=== PATIENT | male | born 1990 | race Caucasian/White ===

== ENCOUNTER → 2017-03-30 | Day surgery (SDC) | payer OTHER ==
--- NOTE | 2017-03-28 09:50 | PCM.ANEPRE ---
Anesthesia Pre-Op Review Reason for Review: phone consult / Dr Rodriguez- jesika hx of malig hyperthermia- pt case now 1st Anesthesia Recommendations: Proceed with Procedure Additional Comments 26 yo man for cysto/stone removal. Distant hx of MH passed down through the family...he is not aware of any specific instance, just told to always let anesthesia know. Prior anesthetics with precautions have been uneventful. He has not been tested. Doesnt' know of any relative who actually had an event, just the family story passed along. Pt told we have charcoal filters for machine, or he could have TIVA without an anesthesia machine or possibly SAB. He appears to prefer a GA. Chart Reviewed by: Irving Ruggiero MD, MD Mar 28, 2017 09:50
[~2017-03-30] VITALS: Ht 175.3 cm; Wt 66.7 kg
[2017-03-30] VITALS (7 sets, daily range): BP systolic 128–159; BP diastolic 77–91; PULSE 54–69; RESP 12–16; O2SAT 94–100
[~2017-03-30] MED LIST: Atropine 0.4 mg/mL Inj IVPUSH PRN; CETI10CA PO; Dexamethasone 4 mg/mL Inj IVPUSH PRN; EPHEDrine Sulfate 50 mg/mL Inj IVPUSH PRN; EPHEDrine/NS 5 mg/mL 5 mL Syringe ONE; HYDR-4003 PO; HYDROcodone-APAP 5-325 mg Tablet PO PRN; HYDROmorphone 1 mg/mL Inj IVPUSH PRN; IBUP-1827 PO; Ketamine 10 mg/mL 20 mL Inj ONE; Labetalol 5 mg/mL 20 mL Inj IV PRN; Lactated Ringer's 1,000 ML IV SCH; Lactated Ringer's 500 ML IV PRN; MetoCLOpramide 5 mg/mL 2 mL Inj IVPUSH PRN; ONDA-53 PO; Ondansetron 2 mg/mL 2 mL Inj IVPUSH PRN; Phenylephrine 10,000 mCg/mL Inj IVPUSH PRN; Propofol 10,000 mCg/mL 20 mL Inj ONE; fentaNYL-PF 50 mCg/mL 2 mL Inj IVPUSH PRN; fentaNYL-PF 50 mCg/mL 2 mL Inj ONE; levoFLOXacin Inj 500 MG in IV Premix 1 EACH IV ONE
[2017-03-30] MEDS: Lactated Ringer's 1,000 ML IV SCH ×2 (06:18→07:32)
--- NOTE | 2017-03-30 07:06 | PCM.HPANE ---
Patient Data Surgeon Admitting Provider: Attending Provider:Franklin Franco MD Primary Care Physician:Alina Agosto MD Other Provider:[facility] Reason for Visit Right Kidney Stone Ht/WT & BMI Height (Feet): 5 Height (Inches): 9.00 Weight (Kilograms): 66.670 Body Mass Index 21.00 Allergies Coded Allergies: No Known Allergies (Unverified , 01/08/16) Past Anesthesia History Anesthesia History: Positive for:: Fam Anesthesia Reaction, Fam Malignant Hypertherm (fathers side- several generations ago ), Denies:: Anesthesia Reactions, Malignant Hyperthermia Diabetes History Hx Diabetes?: No MRSA MRSA: No Medications Hypertension Medication: No Home Meds Incl Beta [place]: No Reported Medications Ibuprofen 600 Mg [id number] Mg PO QID PRN For Pain Ref 0 03/22/17 Ondansetron 4 Mg Tablet4-8 Mg PO Q12H 03/22/17 Hydrocodone-Acetaminophen 5-325 mg 1 Each Tablet1 Tablet PO Q6H PRN For Pain Ref 0 03/22/17 Cetirizine HCl (Zyrtec)10 Mg [id number] Mg PO HS #30 CAPSULE Ref 0 03/22/17 History History of ENT Problems?: No HEENT History: Denies:: Cataracts Glaucoma Hearing Problem Denture Type: None Teeth Condition: Within Normal Limits Hx of Heart Problems?: No Cardiovascular History: Denies:: AICD Abdominal Aortic Aneurism Atrial Fibrillation Coronary Artery Disease Edema Heart Murmur Hypertension Irregular Heartbeat Pacemaker Peripheral Vascular Hx of Respiratory Problem?: No Respiratory History: Denies:: Asthma COPD Emphysema Oxygen Administration Pneumonia Tuberculosis Use of C-PAP Machine Use of Inhalers / NEBS Hx Neurologic Problems?: Yes Neurological History: Positive for:: Headaches (varies from 2xweekly to monthly) Denies:: CVA Multiple Sclerosis Parkinson's Disease Seizures Hx of GI Problems?: No Hx of Problems?: Yes Genitourinary History: Positive for:: Kidney Stones (right stone current admission problem) Denies:: Urinary Tract Infection (not current - hx of with prior stones) Male Hx: Denies:: Prostate Problems Skin History: Denies:: History Skin Disorders? Pressure Ulcers Hx Musculoskeletal Problems?: No Musculoskeletal History: Denies:: Back Injury Degenerative Joint Fibromyalgia Musculoskeletal Trauma Myasthenia Gravis Osteoarthritis Rheumatoid Arthritis Hx of Psycho/Social Problems?: No Psycho Social History: Denies:: Anxiety Hx Depression Hx Surgeries?: Yes (left inguinal hernia rpr) Hx Any Other Health Problems?: Yes Other History: Denies:: Cancer Thyroid Disease History Blood Transfusions: Positive for:: Accept Blood Products? Denies:: Blood Transfusions Hx Diabetes: No Hx Alcohol Use: NoHx Substance Use: No Smoking Status: Never Smoker Have You Smoked inLast 12 mo: No Stop/Bang S-Snoring: Do You Snore Loudly: No T-Tired: feel tired, fatigued: No O-Obsered: Observed not breath: No P-Blood Pressure: treated: No B- Body Mass Index > 35 kg/m2: No A- Age over 50: No N- Neck Large Circumference: No G- Gender Male: Yes DIAMOND Total Score: 1 DIAMOND Risk Assessment: Low Risk, <3 Yes Risk Assessment Category Category 1A: Patient has history of documented sleep apnea, and HAS NOT received any narcotic, sedative or anesthesia administration during this stay. Category 1B: Patient has history of documented sleep apnea, and HAS received any narcotic , sedative or anesthesia administration during this stay Category 2: Patient has SUSPECTED Obstructive Sleep Apnea, and HAS received any narcotic , sedative or anesthesia administration during this stay. Category 3: Patient has SUSPECTED Obstructive Sleep Apnea and HAS NOT received narcotic, sedative or anesthesia administration during this stay. Category 4: Outpatient in Procedural Areas with known sleep apnea or who screen positive for High Risk via the STOP/BANG questionnaire. Exam Exam General Appearance: Alert, Oriented X3, Cooperative, No Acute Distress HEENT/AIRWAY: MP 1 Lungs: Normal Air Movement Heart: Exam Unremarkable Meds/Labs/Diagnostics Admission Meds Current Medications Lactated Ringer's (Lr) 1,000 ml @ 120 mls/hr Q8H20M IV Last administered on t 06:18; Start 03/30/17 at 05:00; Stop 03/30/17 at 13:19 Plan Impression Patient chart reviewed, patient interviewed and anesthestic plan with risks, benefits, and alternatives discussed, and informed consent obtained. NPO per Anesth. Guidelines: Yes ASA Physical Status: ASA1 Normal Healthy Anesthetic Plan: TIVA Bene/Risks/Altern/Consents: Yes HP Complete Prior to Induction: Yes Serafin Smith MD Mar 30, 2017 07:06
--- NOTE | 2017-03-30 08:34 | PCM.SURGPO ---
Immediate Operative Note Date of Surgery: Mar 30, 2017 Pre Operative Diagnosis R renal calculus Post Operative Diagnosis R renal calculus Procedure Extracorporeal shock wave lithotripsy of R renal calculus Surgeon and Scientific Programmer Analyst Surgeon: Franklin Franco MD Assistants: None Findings Pre-op KUB showed a 7mm x 5mm R lower pole renal calculus. ESWL of R renal calculus was performed at a rate of 60, up to a maximum energy level of 6, with a total of 1500 shocks administered. Of note, a 2 minute pause was performed after the initial 200 shocks to aid in calculus fragmentation. Post-ESWL fluoroscopy revealed evidence for excellent fragmentation of calculus. Complications There were no periprocedural complications identified. Surgical Specimen Removed: No Specimen sent to Pathology: No Anesthetic Administered: GA Grafts, Implants: None Output, Estimated Blood Loss: 0 Blood Admin during surgery: No Additional information Patient to return to see SHANNON Wolfe in 2 weeks for post-op visit, with a KUB prior to appt. Franklin Franco MD Mar 30, 2017 08:34
--- NOTE | 2017-03-30 08:39 | PCM.ANEP1 ---
Post Anesthesia PACU Phase 1 Assessment Vital Signs Vital Signs Date Time Temp Pulse Resp B/P Pulse Ox O2 Delivery O2 Flow Rate FiO2 03/30/17 08:35 36.8 64 12 138/77 94 Room Air 03/30/17 08:30 69 15 128/79 94 Room Air 03/30/17 08:20 68 16 132/86 96 Room Air 03/30/17 08:15 36.6 65 16 134/85 97 Room Air 03/30/17 07:15 36.5 60 14 159/91 99 Room Air Anesthetic Administered: TIVA Level of Alertness: Awake, talking HENRY's with Equal Strength: Yes Pain: No Nausea or Vomiting: No CV Function & Hydration Stable: Yes Airway Device: Lungs: Normal Air Movement Dermatome Level: Full Sensation PACU Phase 2 Assessment Complications: No Follow up Care: No Patient Instructions Provided: N/A Serafin Smith MD Mar 30, 2017 08:39
--- NOTE | 2017-03-30 08:50 | PCM.DISURG ---
Surgical Discharge Instruction Date of Service Mar 30, 2017 Dates of Hospitalization Date of Hospital Admission Mar 30, 2017 Providers Admitting Physician: Franklin Franco MD Primary Care Physician: Alina Agosto MD Attending Physician: Franklin Franco MD Discharge Diagnosis Discharge Diagnosis R renal calculus Post Operative diagnosis R renal calculus Diet Discharge Diet: No restrictions, Other (Drink at least 10-12 8oz. glasses (3 liters) of fluids per day) Activity Discharge Activity-General: No driving while taking narcotic Dressing and Incisional Care Hygiene: May shower Follow Up Plan Follow-up Provider (F9): Ankita Wolfe PA-C Follow-up appointment: Weeks (2 weeks for post-op visit, with a KUB prior to appt.) Call your provider for: Fever, Chills, Vomiting, Other (Pain uncontrolled by pain medications) Franklin Franco MD Mar 30, 2017 08:50
--- NOTE | 2017-03-30 14:13 | DRSVH ---
PROCEDURE: X-RAY KUB ([id number]) INDICATIONS: RIGHT KIDNEY STONE TECHNIQUE: One view of the abdomen acquired. COMPARISON: [facility], CT, CT KUB, 03/02/2017, 16:00. [facility], CR, XR K UB, 03/03/2017, 9:53. FINDINGS: Surgical changes and devices: None. Bowel: Bowel gas pattern is normal. Soft tissues: No suspicious abdominal calcifications. Visualized solid organ contours appear normal in size. Bones: No suspicious bony lesions. IMPRESSION: No definite radiographic abnormality. Radiopaque renal stones identified, although much of the right kidney contour is obscured by overlying gas and stool. Dictated by: Raphael Peraza RRAna Interpreted: Rachel Haywood MD on 03/30/2017 at 9:37 Approved by: Rachel Haywood M.D. on 03/30/2017 at 14:11
--- NOTE | 2017-03-31 17:52 | OP ---
[address] [address] OPERATIVE REPORT PATIENT: POONAM OBANDO : 1990 MR#: [id number] ADMIT: 03/30/2017 JOB ID: [id number] DATE OF SURGERY: 03/31/2017 PREOPERATIVE DIAGNOSIS(ES): Right renal calculus. POSTOPERATIVE DIAGNOSIS(ES): Right renal calculus. PROCEDURE: Extracorporeal shockwave lithotripsy of right renal calculus. SURGEON: Franklin Franco MD REEL ASSEMBLER: None. ANESTHESIA: General. ESTIMATED BLOOD LOSS: 0 mL. SPECIMENS: None. DRAINS: None. COMPLICATIONS: None. CONDITION: Stable. FINDINGS: Preoperative KUB showed a 7 mm x 5 mm right lower pole renal calculus. ESWL of right renal calculus was performed at a rate of 60 up to a maximum energy level of 6, with a total of 1500 shocks administered. Of note, a 2-minute pause was performed after the initial 200 shocks to aid in calculus fragmentation. Post ESWL fluoroscopy revealed evidence for excellent fragmentation of calculus. INDICATIONS: The patient is a 26-year-old male with bilateral right greater than left renal calculi with right flank pain. Seen by physician human resources office assistant Ankita Wolfe in the office on March 03, 2017. The patient now presents for extracorporeal shockwave lithotripsy of right renal calculus. DESCRIPTION OF PROCEDURE: The patient was brought to the operating room and placed supine on the operating room table. The patient was given Levaquin IV antibiotics. Sequential compression device boots were placed. General anesthesia was administered. The patient was left in supine position. Preop KUB showed a 7 mm x 5 mm right lower pole renal calculus. Extracorporeal shockwave lithotripsy of right renal calculus was performed at a rate of 60, up to a maximum energy level of 6, with a total of 1500 shocks administered. Of note, a 2 minute pause was performed after the initial 200 shocks to aid in calculus fragmentation. Post ESWL fluoroscopy revealed evidence for excellent fragmentation of calculus. The patient was awakened from general anesthesia and transferred to the recovery room in stable condition. The patient tolerated the procedure well. POSTOPERATIVE PLAN: For the patient to return to see SHANNON Wolfe in two weeks for a postoperative visit with a KUB prior to the appointment.
== END | disposition home or self-care (01) ==
LOC: SAS 05:42
PROVIDERS: ATTEND Urology
DX: N20.0 Calculus of kidney (principal)
CPT/HCPCS: 50590; 74000; J2250; J2704; J3010; J7120